=== PATIENT | male | born 1955 | race Two or more races ===

== ENCOUNTER 2020-12-09 16:20 | Emergency (ER) | payer MEDICARE ==
[~2020-12-09] VITALS: Ht 175.3 cm; Wt 89.0 kg
[2020-12-09] MEDS ORDERED: NITROGLYCERIN SUBLINGUAL 0.4 MG BOTTLE OF 25. SL PRN (16:45)
--- NOTE | 2020-12-09 17:04 | RAD ---
CT HEAD INDICATION: Heaviness in the left arm COMPARISON: None Available. Exposure: One or more of the following individualized dose reduction techniques were utilized for thi s examination: 1. Automated exposure control 2. Adjustment of the mA and/or kV according to patient size 3. Use of iterative reconstruction technique TECHNIQUE: 5 mm contiguous axial images were obtained from the skull base to the vertex in both bone and soft tissue algorithm. FINDINGS: Mild bilateral periventricular white matter hypodensities likely atelectasis or infiltrates. No evidence of acute intracranial hemorrhage. No extra-axial fluid collections. No mass effect or midline shift. Ventricular size is appropriate. Basal cisterns are patent. No fractures identified.De Los Santos-white differentiation is preserved.Globes and orbits are within normal l imits. Paranasal sinuses and mastoid air cells are clear. IMPRESSION: 1. No acute intracranial findings. 2. 3. Mild bilateral periventricular white matter hypodensities likely atelectasis or infiltrates. Electronically signed by: Emerson Lyle MD (12/09/2020 5:01 PM) [facility]
[2020-12-09 17:06] LABS: BASO % 1 % (0-3); EOS # 0.1 x10^3/uL (0.0-0.7); EOS % 2 % (0-3); HEMATOCRIT 45.9 % (39.0-53.0); HEMOGLOBIN 15.5 g/dL (13.0-17.5); LYMPH # 1.7 x10^3/uL (1.0-4.8); LYMPH % 29 % (24-48); MEAN CORPUSCULAR HEMOGLOBIN 32 pg (25-35); MEAN CORPUSCULAR HGB CONC 34 g/dL (31-37); MEAN CORPUSCULAR VOLUME 95 fL (79-100); MONO # 0.6 x10^3/uL (0.0-1.1); MONO % 10 % (0-9); NEUT # 3.4 x10^3uL (1.8-7.7); NEUT % 58 % (31-73); PLATELET COUNT 237 x10^3/uL (140-400); RED BLOOD COUNT 4.82 x10^6/uL (4.30-5.70); RED CELL DISTRIBUTION WIDTH 13.3 % (11.5-14.5); WHITE BLOOD COUNT 5.9 x10^3/uL (4.0-11.0)
[2020-12-09 17:07] LABS: CALCIUM 8.8 mg/dL (8.5-10.1); GFR 74.5; POTASSIUM 3.8 mmol/L (3.5-5.1)
--- NOTE | 2020-12-09 17:08 | RAD ---
EXAMINATION: Chest radiograph. VIEWS: Single view COMPARISON: None INDICATION:65 years, Male, heavy left arm. FINDINGS: Normal cardiomediastinal silhouette. No focal consolidation. No pleural effusion or pneumothorax. No acute osseous process. IMPRESSION: No acute cardiopulmonary process. Electronically signed by: Huber Barkley MD (12/09/2020 5:06 PM) [facility]
[2020-12-09 17:45] VITALS: BP 147/88
--- NOTE | 2020-12-09 17:53 | PHYS DOC ---
Past History Past Surgical History: No Surgical History Alcohol Use: None Adult General Chief Complaint Chief Complaint: HYPERTENSION HPI HPI Patient is a 65-year-old female presenting for left arm heaviness. Onset was this morning without any known inciting event, mechanism of injury or exposure. Patient denies any pain just states that her left chest and arm feel heavier than usual. Nothing known makes better or worse. Timing of symptoms has been constant. She is never experienced this in the past. She has history of high blood pressure and high cholesterol but no significant cardiac history, no family history of cardiac disease. She has never had a stroke. She is compliant with all home medications without any changes. Denies alcohol tobacco or recreational drug use Review of Systems Review of Systems Fourteen body systems of review of systems have been reviewed. See HPI for pertinent positives and negative responses, other kent all other systems are negative, non-pertinent or non-contributory Current Medications Current Medications Current Medications Medications (Trade) Dose Ordered Sig/Joanna Start Time Stop Time Status Last Admin Dose Admin Nitroglycerin (Nitrostat) 0.4 mg PRN Q5MIN PRN 12/09/20 16:45 12/10/20 16:44 12/09/20 17:02 0.4 MG Allergies Allergies Allergies Coded Allergies Type Severity Reaction Last Updated Verified No Known Drug Allergies 12/09/20 No Physical Exam Physical Exam Constitutional: Well developed, well nourished, no acute distress, non-toxic appearance. HENT: Normocephalic, atraumatic, bilateral external ears normal, oropharynx moist, no oral exudates, nose normal. Eyes: PERRLA, EOMI, conjunctiva normal, no discharge. Neck: Normal range of motion, no tenderness, supple, no stridor. Cardiovascular: Heart rate regular, sinus rhythm, no murmurs rubs or gallops Lungs & Thorax: Bilateral breath sounds clear to auscultation Abdomen: Bowel sounds normal, soft, no tenderness, no masses, no pulsatile masses. Nonsurgical abdomen, no peritoneal signs Skin: Warm, dry, no erythema, no rash. Back: No tenderness, no CVA tenderness. Extremities: No tenderness, no cyanosis, no clubbing, ROM intact, no edema. Neurologic: Alert and oriented X 3, cranial nerves II through XII intact, negative Spurling sign bilaterally, normal motor & sensory function, no focal deficits noted. Psychologic: Affect normal, judgement normal, mood normal. Current Patient Data Vital Signs Vital Signs Date Time Temp Pulse Resp B/P (MAP) Pulse Ox O2 Delivery O2 Flow Rate FiO2 12/09/20 17:45 71 16 147/88 (107) 98 Room Air 12/09/20 16:30 98.5 Lab Results Laboratory Tests Test 12/09/20 16:44 12/09/20 17:04 White Blood Count 5.9 x10^3/uL (4.0-11.0) Red Blood Count 4.82 x10^6/uL (4.30-5.70) Hemoglobin 15.5 g/dL (13.0-17.5) Hematocrit 45.9 % (39.0-53.0) Mean Corpuscular Volume 95 fL (79-100) Mean Corpuscular Hemoglobin 32 pg (25-35) Mean Corpuscular Hemoglobin Concent 34 g/dL (31-37) Red Cell Distribution Width 13.3 % (11.5-14.5) Platelet Count 237 x10^3/uL (140-400) Neutrophils (%) (Auto) 58 % (31-73) Lymphocytes (%) (Auto) 29 % (24-48) Monocytes (%) (Auto) 10 % (0-9) H Eosinophils (%) (Auto) 2 % (0-3) Basophils (%) (Auto) 1 % (0-3) Neutrophils # (Auto) 3.4 x10^3uL (1.8-7.7) Lymphocytes # (Auto) 1.7 x10^3/uL (1.0-4.8) Monocytes # (Auto) 0.6 x10^3/uL (0.0-1.1) Eosinophils # (Auto) 0.1 x10^3/uL (0.0-0.7) Basophils # (Auto) 0.0 x10^3/uL (0.0-0.2) Sodium Level 141 mmol/L (136-145) Potassium Level 3.8 mmol/L (3.5-5.1) Chloride Level 104 mmol/L (98-107) Carbon Dioxide Level 27 mmol/L (21-32) Anion Gap 10 (6-14) Blood Urea Nitrogen 16 mg/dL (8-26) Creatinine 1.0 mg/dL (0.7-1.3) Estimated GFR (Cockcroft-Gault) 74.5 Glucose Level 95 mg/dL (70-99) Calcium Level 8.8 mg/dL (8.5-10.1) Troponin I Quantitative < 0.017 ng/mL (0-0.055) Glucose (Fingerstick) 92 mg/dL (70-99) EKG EKG [] Radiology/Procedures Radiology/Procedures [] Heart Score C/O Chest Pain: No HEART Score for Chest Pain: HEART Score for Chest Pain Response (Comments) Value History Slighlty/Non-Suspicious 0 ECG Normal 0 Age > 65 2 Risk Factors 1 or 2 Risk Factors 1 Troponin < Normal Limit 0 Total 3 Risk Factors: Risk Factors: DM, Current or recent (<one month) smoker, HTN, HLP, family history of CAD, obesity. Risk Scores: Risk Factors: DM, Current or recent (<one month) smoker, HTN, HLP, family history of CAD, obesity. Course & Med Decision Making Course & Med Decision Making ABCs unremarkable. I disclosed entirety of ER findings and discussed most likely diagnosis of left arm heaviness of unknown etiology. Other diagnoses were discussed with patient such as ACS, stroke, cervical nerve impingement etc. but all deemed less likely causes of patient's presentation. I discussed utility of pursuing CT head but patient deferred stating she just wanted to make sure it was not her heart. She does have several risk factors and I reviewed the heart score but patient did not want to be admitted for cardiac observation and so, close outpatient follow-up advised. Plan of care discussed at length with need for close outpatient follow-up to review today's ER visit stressed. Strict return precautions were also discussed at length with good understanding by caroline valente. Patient voiced understanding and agreement with the plan. Patient knows to come back for repeat evaluation if concerning signs or symptoms present prior to outpatient follow-up. Hemodynamically stable, ambulatory and well-appearing at time of disposition. Dragon Disclaimer Dragon Disclaimer This electronic medical record was generated, in whole or in part, using a voice recognition dictation system. Departure Departure: Impression: Primary Impression: Left arm pain Additional Impression: HTN (hypertension) Disposition: HOME / SELF CARE / HOMELESS Condition: IMPROVED Referrals: PCP,UNKNOWN (PCP) Additional Instructions: You were seen for left arm heaviness. Your workup did not show any acute abnormalities today concerning for any surgical or emergent issues. With that said, potential need for hospital observation was discussed in order to definitively ensure no emergent or surgical issues arises this may be an acute presentation of more concerning pathology. With that said, you felt comfortable going home and following up tomorrow with your primary care physician in outpatient setting in addition to your senior oracle dba. You should return to the ED if you develop worsening chest pain, shortness of breath, fever, abnormal sweating, leg swelling, or any other new or concerning symptoms. Problem Qualifiers PAULINE ESPAÑA DO Dec 09, 2020 17:53
--- NOTE | 2020-12-09 18:04 | EKG ---
[address] [address] Test Date: 2020-12-09 Test Time: 17:25:48 Pat Name: SALEEM LEES Department: Room: Gender: M Pan Helper: : 1955 Requested By: PAULINE ESPAÑA Order Number: [id number] Reading MD: Measurements Intervals [place] Rate: 66 P: 90 TX: 150 QRS: -89 QRSD: 144 T: 43 QT: 424 QTc: 446 Interpretive Statements SINUS RHYTHM ABNORMAL LEFT AXIS DEVIATION S1,S2,S3 PATTERN LEFT ANTERIOR FASCICULAR BLOCK RIGHT BUNDLE BRANCH BLOCK BIFASCICULAR BLOCK RVH WITH REPOLARIZATION ABNORMALITY ABNORMAL ECG RI6.02 No previous ECG available for comparison
== END 2020-12-09 18:05 | disposition home or self-care (01) ==
LOC: ER 16:20
DX: I10 Essential (primary) hypertension (principal); M79.602 Pain in left arm; E78.00 Pure hypercholesterolemia, unspecified
CPT/HCPCS: 36415; 70450; 71045; 80048; 82947; 84484; 85025; 93005; 99285